=== PATIENT | female | born 1990 | race Caucasian/White ===

== ENCOUNTER 2017-06-24 22:47 | Emergency (ER) | payer BC, OTHER ==
[~2017-06-24] VITALS: Ht 162.6 cm; Wt 80.0 kg
[2017-06-24 23:06] VITALS: BP 131/74; PULSE 82; RESP 18; TEMP 98.3; O2SAT 99
--- NOTE | 2017-06-24 23:20 | PD ---
HPI Chief Complaint: Respiratory Symptoms Time Seen by Provider: 23:16 Travel History International Travel<30 days: No Contact w/Intl Traveler<30days: No Traveled to known affect area: No History of Present Illness HPI 27-year-old female patient with history of no significant past medical issues, presents with several days history of cough, sore throat, chest tightness today after coughing. She was having trouble going to sleep because of the coughing. She denies any fevers, vomiting, or other symptoms. She states that she has several coworkers who are also having similar symptoms. Modifying Factors: None Associated Signs & Symptoms: Coughing, sore throat, chest tightness Risk Factors: Sick contacts PFSH Past Medical History Medical History: Denies Significant Hx Diminished Hearing: No Tetanus Vaccination: Unknown Influenza Vaccination: No ?: Not LMP: 06/24/2017 Past Surgical History Other Surgery: Yes (jaw sx) Social History Alcohol Use: No Tobacco Use: No Substance Use: No Allergies-Medications (Allergen,Severity, Reaction): Coded Allergies: No Known Allergies (Unverified , 06/24/17) Review of Systems Except as stated in HPI: all other systems reviewed are Neg Physical Exam Narrative GENERAL: Well-developed young female patient currently in mild distress. Awake and oriented 3. SKIN: Focused skin assessment warm/dry. HEAD: Atraumatic. Normocephalic. EYES: Pupils equal and round. No scleral icterus. No injection or drainage. ENT: Mucosa pink and moist. Mild erythema with no exudates. No uvular edema. No uvular, palatal, or tonsillar deviation. Airway patent. Nasal turbinates appear normal without nasal blood, purulent drainage or septal hematoma. NECK: Trachea midline. No JVD. Supple. CARDIOVASCULAR: Regular rate and rhythm. No murmur appreciated. RESPIRATORY: No accessory muscle use. Mild wheezing intermittently. Breath sounds equal bilaterally. GASTROINTESTINAL: Abdomen soft, non-tender, nondistended. Hepatic and splenic margins not palpable. MUSCULOSKELETAL: No obvious deformities. No clubbing. No cyanosis. No edema. NEUROLOGICAL: Awake and alert. No obvious cranial nerve deficits. Motor grossly within normal limits. Normal speech. PSYCHIATRIC: Appropriate mood and affect; insight and judgment normal. Data Data Last Documented VS Vital Signs Date Time Temp Pulse Resp B/P (MAP) Pulse Ox O2 Delivery O2 Flow Rate FiO2 06/24/17 23:06 98.3 82 18 131/74 (93) 99 Orders Orders Influenzae A/B Antigen (06/24/17 23:16) Albuterol Neb (Albuterol Neb) (06/24/17 23:30) Group A Rapid Strep Screen (06/24/17 23:16) Strep Culture (Group A) (06/24/17 23:55) Ed Discharge Order (06/25/17 00:28) MDM Medical Decision Making Medical Screen Exam Complete: Yes Emergency Medical Condition: Yes Medical Record Reviewed: Yes Differential Diagnosis URI versus bronchitis versus strep pharyngitis versus influenza versus pneumonia Narrative Course Influenza and rapid strep testing is negative. Patient was given a albuterol nebulizer and on reevaluation at 12:20 AM, she is feeling much better. At this point, my plan would be to release her with follow-up to primary care physician as needed. We will give her further treatment for bronchitis. The plan was discussed with her and she states understanding. Diagnosis Primary Impression: Bronchitis Med/Other Pt SpecificInfo: Prescription(s) given Scripts Prednisone (Prednisone) 50 Mg Tab 50 MG PO DAILY for 3 Days, #3 TAB 0 Refills Prov: Maribel Constantino MD 06/25/17 Albuterol 6.7 GM Inh (Proventil Hfa 6.7 GM Inh) 90 Mcg/Act Aer 2 PUFF INH Q4-6H Y for SHORTNESS OF BREATH, #1 INHALER 0 Refills Prov: Maribel Constantino MD 06/25/17 Disposition: 01 DISCHARGE HOME Condition: Stable Maribel Constantino MD Jun 24, 2017 23:20
[2017-06-24] MEDS ORDERED: RESP: ALBUTEROL 2.5 MG/3 ML NEB (SCH) INH ONE (23:30)
[2017-06-25] MEDS ORDERED: PRED50 PO (00:30)
[2017-06-25] MEDS ORDERED: ALBU6.7H INH (00:30)
== END 2017-06-25 00:35 | disposition home or self-care (01) ==
LOC: NEPD 22:47
DX: J40 Bronchitis, not specified as acute or chronic (principal)
CPT/HCPCS: 87081; 87804; 87880; 94664; 99283; J7613